=== PATIENT | female | born 1985 | race Caucasian/White ===

== ENCOUNTER 2018-09-25 00:32 | Emergency (ER) | payer OTHER, SELFPAY ==
--- NOTE | 2018-09-25 02:03 | EDPHYS ---
Physician Documentation [facility] Name: Lesli Fay Age: 33 yrs Sex: Female : 1985 Arrival Date: 09/25/2018 Time: 00:39 Bed 23 Private MD: ED Physician Angelo Barraza HPI: 09/25 05:12 This 33 yrs old Female presents to ER via Ambulatory with complaints of wa pinworms. 05:13 This 33 yrs old Female presents to ER via Ambulatory with complaints of wa pinworms. 05:13 c/o pinworms. states has noted them in her underwear and also it itches in her anal wa area. Onset: The symptoms/episode began/occurred 1 week(s) ago. Severity of symptoms: At their worst the symptoms were moderate in the emergency department the symptoms are unchanged. The patient has not experienced similar symptoms in the past. The patient has not recently seen a physician. denies abd pain, fever or any other concerns. Historical: - Allergies: 00:44 No Known Allergies; la1 - PMHx: 00:44 neuromyelitis optica; Fibromyalgia; IBS; Asthma; High Cholesterol; Migraines; la1 - Immunization history:: Adult Immunizations up to date. - Social history:: Smoking status: Patient uses tobacco products, smokes one-half pack cigarettes per day. - Ebola Screening: : No symptoms or risks identified at this time. - Family history:: not pertinent. - Hospitalizations: : No recent hospitalization is reported. ROS: 05:15 Constitutional: Negative for fever, chills, and weight loss, Eyes: Negative for injury, wa pain, redness, and discharge, ENT: Negative for injury, pain, and discharge, Neck: Negative for injury, pain, and swelling, Cardiovascular: Negative for chest pain, palpitations, and edema, Respiratory: Negative for shortness of breath, cough, wheezing, and pleuritic chest pain, Back: Negative for injury and pain, : Negative for injury, bleeding, discharge, and swelling, MS/Extremity: Negative for injury and deformity, Skin: Negative for injury, rash, and discoloration, Neuro: Negative for headache, weakness, numbness, tingling, and seizure. 05:15 Abdomen/GI: Positive for anal itching and pinworms. 05:15 All other systems are negative. Exam: 05:15 Constitutional: This is a well developed, well nourished patient who is awake, alert, wa and in no acute distress. Head/Face: Normocephalic, atraumatic. Eyes: Pupils equal round and reactive to light, extra-ocular motions intact. Lids and lashes normal. Conjunctiva and sclera are non-icteric and not injected. Cornea within normal limits. Periorbital areas with no swelling, redness, or edema. ENT: Nares patent. No nasal discharge, no septal abnormalities noted. Tympanic membranes are normal and external auditory canals are clear. Oropharynx with no redness, swelling, or masses, exudates, or evidence of obstruction, uvula midline. Mucous membranes moist. Neck: Trachea midline, no thyromegaly or masses palpated, and no cervical lymphadenopathy. Supple, full range of motion without nuchal rigidity, or vertebral point tenderness. No Meningismus. Chest/axilla: Normal chest wall appearance and motion. Nontender with no deformity. No lesions are appreciated. Cardiovascular: Regular rate and rhythm with a normal S1 and S2. No gallops, murmurs, or rubs. Normal PMI, no JVD. No pulse deficits. Respiratory: Lungs have equal breath sounds bilaterally, clear to auscultation and percussion. No rales, rhonchi or wheezes noted. No increased work of breathing, no retractions or nasal flaring. Back: No spinal tenderness. No costovertebral tenderness. Full range of motion. MS/ Extremity: Pulses equal, no cyanosis. Neurovascular intact. Full, normal range of motion. Neuro: Awake and alert, GCS 15, oriented to person, place, time, and situation. Cranial nerves II-XII grossly intact. Motor strength 5/5 in all extremities. Sensory grossly intact. Cerebellar exam normal. Normal gait. Psych: Awake, alert, with orientation to person, place and time. Behavior, mood, and affect are within normal limits. 05:15 Abdomen/GI: Rectal exam: no pinworms noted on visual exam of perirectal/anal area. Vital Signs: 00:44 BP 109 / 77; Pulse 112; Resp 18; Temp 98.4; Pulse Ox 98% on R/A; Weight 30.39 kg; la1 Height 5 ft. 1 in. (154.94 cm); 00:44 Body Mass Index 12.66 (30.39 kg, 154.94 cm) la1 MDM: 01:54 Patient medically screened. wa 05:16 Differential Diagnosis c/o pinworms. will treat empirically. clinical exam by me jean-baptiste negative at this time. Data reviewed: vital signs, nurses notes. Administered Medications: No medications were administered Disposition: 09/25/18 02:03 Discharged to Home. Impression: Pinworms. - Condition is Stable. - Discharge Instructions: Pinworms, Pediatric. - Prescriptions for mebendazole - take 100 milligram by ORAL route one time repeat x1 in 2 weeks; 2 milligram. - Medication Reconciliation Form, Thank You Letter, Antibiotic Education, Prescription Opioid Use form. - Work release form (09/25/18 02:19). ak1 - Follow up: Private Physician; When: 2 - 3 days; Reason: Recheck today's complaints. - Problem is new. - Symptoms are unchanged. - Notes: take one tablet now. repeat x1 in 2 weeks Signatures: Kareem Pepe RN RN la1 Clover Goodwin RN RN ak1 Angelo Barraza MD MD wa Corrections: (The following items were deleted from the chart) 02:17 02:03 09/25/2018 02:03 Discharged to Home. Impression: Pinworms. Condition is Stable. ak1 Forms are Medication Reconciliation Form, Thank You Letter, Antibiotic Education, Prescription Opioid Use. Follow up: Private Physician; When: 2 - 3 days; Reason: Recheck today's complaints. Problem is new. Symptoms are unchanged. wa
--- NOTE | 2018-09-25 02:03 | ER ---
Nurse's Notes [facility] Name: Lesli Fay Age: 33 yrs Sex: Female : 1985 Arrival Date: 09/25/2018 Time: 00:39 Bed 23 Private MD: Diagnosis: Pinworms Presentation: 09/25 00:42 Presenting complaint: Patient states: I think I have pinworms, I keep finding things in la1 my bed/clothes. I have been having a lot of constipation, nausea. Some of these problems have been going on for years. Transition of care: patient was not received from another setting of care. Onset of symptoms was September 25, 2018. Risk Assessment: Do you want to hurt yourself or someone else? Patient reports no desire to harm self or others. Initial Sepsis Screen: Does the patient meet any 2 criteria? No. Patient's initial sepsis screen is negative. Does the patient have a suspected source of infection? No. Patient's initial sepsis screen is negative. Care prior to arrival: None. 00:42 Method Of Arrival: Ambulatory la1 00:42 Acuity: TAZ 3 la1 Historical: - Allergies: 00:44 No Known Allergies; la1 - PMHx: 00:44 neuromyelitis optica; Fibromyalgia; IBS; Asthma; High Cholesterol; Migraines; la1 - Immunization history:: Adult Immunizations up to date. - Social history:: Smoking status: Patient uses tobacco products, smokes one-half pack cigarettes per day. - Ebola Screening: : No symptoms or risks identified at this time. - Family history:: not pertinent. - Hospitalizations: : No recent hospitalization is reported. Screenin:50 Abuse screen: Denies threats or abuse. Nutritional screening: No deficits noted. fc Tuberculosis screening: No symptoms or risk factors identified. Fall Risk None identified. Assessment: 01:50 General: Appears in no apparent distress. comfortable, slender, Behavior is calm, fc cooperative, appropriate for age. Pain: Denies pain. Neuro: Level of Consciousness is awake, alert, obeys commands, Oriented to person, place, time, situation, Appropriate for age. Cardiovascular: No deficits noted. Respiratory: No deficits noted. GI: Reports having pinworms. : No deficits noted. EENT: No deficits noted. Derm: Skin is pink, warm \T\ dry. Musculoskeletal: Circulation, motion, and sensation intact. Capillary refill < 3 seconds, Range of motion: intact in all extremities. 01:55 Reassessment: Went in with Dr Barraza to see pt and he did his exam. He then spoke with fc pt re: meds and treatment of pinworms. Pt verbalized understanding. Vital Signs: 00:44 BP 109 / 77; Pulse 112; Resp 18; Temp 98.4; Pulse Ox 98% on R/A; Weight 30.39 kg; la1 Height 5 ft. 1 in. (154.94 cm); 00:44 Body Mass Index 12.66 (30.39 kg, 154.94 cm) la1 ED Course: 00:39 Patient arrived in ED. am2 00:43 Triage completed. la1 00:44 Arm band placed on left wrist. la1 01:50 Patient has correct armband on for positive identification. Bed in low position. Call fc light in reach. Side rails up X 1. 01:54 Angelo Barraza MD is Attending Physician. mi 01:55 Clover Goodwin, RN is Primary Nurse. ak1 01:55 Served as a car changer during rectal exam. 02:08 Patient did not have IV access during this emergency room visit. Administered Medications: No medications were administered Outcome: 02:03 Discharge ordered by . mi 02:09 Discharged to home ambulatory. 02:09 Condition: good 02:09 Discharge instructions given to patient, Instructed on discharge instructions, follow up and referral plans. medication usage, Demonstrated understanding of instructions, follow-up care, medications, Prescriptions given X 1. 02:17 Patient left the ED. ak1 Signatures: Dipika Pineda RN SAMSON Kareem Pepe RN RN Clover Herbert, RN RN Nancy Dockery 2 Angelo Barraza MD MD wa
[2018-09-25 02:54] VITALS: BP 109/77; TEMP 98.4; O2SAT 98
== END 2018-09-25 02:17 | disposition home or self-care (01) ==
LOC: ER 00:32
DX: B80 Enterobiasis (principal); J45.909 Unspecified asthma, uncomplicated; E78.00 Pure hypercholesterolemia, unspecified; F17.210 Nicotine dependence, cigarettes, uncomplicated
CPT/HCPCS: 99283

== ENCOUNTER 2019-03-12 12:47 | Emergency (ER) | payer SELFPAY ==
--- OUTSIDE RECORDS SUMMARY | 2019-03-12 12:49 | XMS REPORT | Summary of Care ---
:1985 Author Organization [facility] Address [address] [place] [address] Care Team Providers Name Role Phone Pcp, Patient Does Not Have A Primary Care Provider Reason for Referral Other (Routine) Status Reason Specialty Diagnoses / Referred By Referred To Procedures Contact Contact New Request Diagnoses Acute pharyngitis, unspecified etiology Underweight Gia Coulter King, James C Procedures Discharge Follow-up: Specialty Provider DANA BERRIOS III; 3-5 Days MD LELSEE MD [address] [place] [address] [id number] [address] [place] [address] Phone: Radiology Services (STAT) Status Reason Specialty Diagnoses / Referred By Referred To Procedures Contact Contact New Request Diagnostic Diagnoses Fever in other diseases Gia Coulter Radiology Procedures XR CHEST 1 LAURA Beltre MD [address] [place] [address] Radiology Services (STAT) Status Reason Specialty Diagnoses / Referred By Referred To Procedures Contact Contact New Request Diagnostic Diagnoses Fever in other diseases Gia Coulter Radiology Procedures XR CHEST 1 LAURA Beltre MD [address] [place] [address] Reason for Visit Reason Comments Cough Auth/Cert Status Reason Specialty Diagnoses / Referred By Referred To Procedures Contact Contact [facility] [address] [place] [address] [place] [address] Encounter Details Date Type Department Care Team Description 10/30/2018 - Emergency [facility] Gia Coulter, Fever in other diseases (Primary Dx); 10/31/2018 Department MD Acute pharyngitis, unspecified etiology; [address] [place] [address] [place] [address] [id number] [place] [address] [phone] Allergies No Known Allergiesdocumented as of this encounter (statuses as of 10/31/2018) Medications Medication Sig Dispensed Refills Start Date End Date Status #2 ORAL 1 po daily 0 Active DOCUSATE CALCIUM Take one capsule by 60 capsules 1 10/30/2008 Active 240 MG ORAL CAP mouth daily as needed for constipation FERROUS SULFATE 1 Tab Oral TID MEALS 90 1 10/30/2008 Active 325 MG (65 MG IRON) ORAL TAB documented as of this encounter (statuses as of 10/31/2018) Active Problems Problem Noted Date Normal delivery 10/29/2008 anemia 10/29/2008 Overview: ICD10 Diagnosis Term Patient Care Coordinator Utility Bipolar disorder 10/29/2008 Disruption of perineal wound, with delivery, with mention of 2008 complication documented as of this encounter (statuses as of 10/31/2018) Social History Tobacco Use Types Packs/Day Years Used Date Never Assessed Sex Assigned at Date Recorded Not on file Job Start Date Occupation Industry Not on file Not on file Not on file Travel History Travel Start Travel End No recent travel history available. documented as of this encounter Last Filed Vital Signs Vital Sign Reading Time Taken Comments Blood Pressure 85/58 10/31/2018 2:00 AM CDT Pulse 78 10/31/2018 2:00 AM CDT Temperature 37.7 C (99.8 F) 10/30/2018 11:39 PM CDT Respiratory Rate 27 10/31/2018 2:00 AM CDT Oxygen Saturation 99% 10/31/2018 2:00 AM CDT Inhaled Oxygen Concentration - - Weight 29.5 kg (65 lb) 10/30/2018 11:39 PM CDT Height - - Body Mass Index - - documented in this encounter Discharge Instructions Gia Balderrama MD - 10/31/2018 DIAGNOSIS Diagnoses that have been ruled out: None Diagnoses that are still under consideration: None Final diagnoses: Fever in other diseases Acute pharyngitis, unspecified etiology Underweight NO LIFE-THREATENING FINDINGS ON TODAY'S EXAM. PROCEDURES IN THE ER TODAY: Orders Placed This Encounter Procedures XR CHEST 1 VW CBC WITH DIFF COMP. METABOLIC PANEL (35782) LIPASE URINALYSIS RAPID STREP SCREEN FOR GROUP A EBV-MONONUCLEOSIS SCREEN MAGNESIUM CBC WITH DIFFERENTIAL THROAT CULTURE MEDICATIONS ADMINISTERED IN THE ER TODAY AND DISCHARGE MEDICATIONS: Orders Placed This Encounter Medications NaCl 0.9% (NS) bolus infusion 500 mL FOLLOW-UP RECOMMENDATIONS: RECOMMEND FOLLOW-UP WITH YOUR PRIMARY CARE PROVIDER OR DR KING CAMILO DISCUSSED TO FURTHER EVALUATE YOU RETURN TO ER FOR WORSENING OF SYMPTOMS documented in this encounter Plan of Treatment Name Type Priority Associated Diagnoses Date/Time XR CHEST 1 VW IMAGING STAT Fever in other diseases 10/31/2018 12:32 AM CDT THROAT CULTURE LAB STAT Fever in other diseases 10/31/2018 12:21 AM CDT Name Type Priority Associated Diagnoses Order Schedule THROAT CULTURE LAB Routine Fever in other diseases ONCE for 1 Occurrences starting 10/31/2018 until 10/31/2018 Health Maintenance Due Date Last Done Comments VARICELLA VACCINES (1 of 2 - 1996 13+ 2-dose series) DTaP,Tdap,and Td Vaccines (1 2002 - Tdap) PAP SMEAR 12/13/2011 12/12/2008, 08/27/2008 INFLUENZA VACCINE 11/19/2018 PNEUMOCOCCAL 0-64 YEARS Aged Out No longer eligible based COMBINED SERIES on patient's age to complete this topic documented as of this encounter Procedures Procedure Name Priority Date/Time Associated Comments Diagnosis CBC WITH DIFFERENTIAL STAT 10/31/2018 12:21 Fever in other Results for this AM CDT diseases procedure are in the results section. RAPID STREP SCREEN STAT 10/31/2018 12:21 Fever in other Results for this FOR GROUP A AM CDT diseases procedure are in the results section. EBV-MONONUCLEOSIS STAT 10/31/2018 12:21 Fever in other Results for this SCREEN AM CDT diseases procedure are in the results section. URINALYSIS STAT 10/31/2018 12:21 Fever in other Results for this AM CDT diseases procedure are in the results section. CBC WITH DIFF STAT 10/31/2018 12:21 Fever in other Results for this AM CDT diseases procedure are in the results section. COMP. METABOLIC PANEL STAT 10/31/2018 12:21 Fever in other Results for this (70399) AM CDT diseases procedure are in the results section. MAGNESIUM STAT 10/31/2018 12:21 Fever in other Results for this AM CDT diseases procedure are in the results section. LIPASE STAT 10/31/2018 12:21 Fever in other Results for this AM CDT diseases procedure are in the results section. NOTICE OF PRIVACY Routine 10/30/2018 11:36 PRACTICES PM CDT CONSENT/REFUSAL FOR Routine 10/30/2018 11:35 DIAGNOSIS AND PM CDT TREATMENT documented in this encounter Results CBC WITH DIFFERENTIAL (10/31/2018 12:21 AM CDT) WBC 9.39 4.30 - 11.10 [facility] 10*3/L [facility] RBC 4.24 3.93 - 5.25 [facility] 10*6/L [facility] HGB 13.1 11.6 - 15.0 [facility] g/dL [facility] HCT 39.8 35.7 - 45.2 % [facility] MCV 93.9 80.6 - 95.5 fL [facility] MCH 30.9 25.9 - 32.8 pg [facility] MCHC 32.9 31.6 - 35.1 [facility] g/dL [facility] RDW-SD 43.9 39.0 - 49.9 fL [facility] RDW-CV 12.7 12.0 - 15.5 % [facility] PLT 239 166 - 358 [facility] 10*3/L [facility] MPV 8.7 (L) 9.5 - 12.9 fL [facility] NRBC/100 WBC 0.0 0.0 - 10.0 /100 [facility] WBCs [facility] NRBC x10^3 <0.01 10*3/L [facility] GRAN MAT (NEUT) % 73.1 % [facility] IMM GRAN % 0.30 % [facility] LYMPH % 11.0 % [facility] MONO % 13.5 % [facility] EOS % 1.7 % [facility] BASO % 0.4 % [facility] GRAN MAT x10^3(ANC) 6.86 1.88 - 7.09 [facility] 10*3/uL [facility] IMM GRAN x10^3 0.03 0.00 - 0.06 [facility] 10*3/uL [facility] LYMPH x10^3 1.03 (L) 1.32 - 3.29 [facility] 10*3/uL [facility] MONO x10^3 1.27 (H) 0.33 - 0.92 [facility] 10*3/uL [facility] EOS x10^3 0.16 0.03 - 0.39 [facility] 103/uL [facility] BASO x10^3 0.04 0.01 - 0.[address]/uL [facility] Specimen Blood - ARM, RIGHT Performing Organization Address [facility] Phone Number [facility] CLIA: [id number], [address] [place] [address] MAGNESIUM (10/31/2018 12:21 AM CDT) MAGNESIUM 2.1 1.7 - 2.4 mg/dL [facility] Specimen Blood - ARM, RIGHT Performing Organization Address [facility] Phone Number [facility] CLIA: [id number], [address] [place] [address] EBV-MONONUCLEOSIS SCREEN (10/31/2018 12:21 AM CDT) EBV Mononucleosis Screen Negative Negative [facility] Specimen Blood - ARM, RIGHT Performing Organization Address [facility] Phone Number [facility] CLIA: [id number], [address] [place] [address] RAPID STREP SCREEN FOR GROUP A (10/31/2018 12:21 AM CDT) Streptococcus pyogenes Negative Negative [facility] (group A) antigen [facility] Specimen Swab - THROAT Performing Organization Address [facility] Phone Number [facility] CLIA: [id number], [address] [place] [address] URINALYSIS (10/31/2018 12:21 AM CDT) APPEARANCE Slightly Cloudy (A) Clear [facility] COLOR Yellow Yellow [facility] PH 6.0 4.8 - 8.0 [facility] SP GRAVITY 1.025 1.003 - 1.030 [facility] GLU U QUAL Negative Negative [facility] BLOOD Negative Negative [facility] KETONES Trace (A) Negative [facility] PROTEIN Trace (A) Negative [facility] UROBILIN 1.0 mg/dL 0-1.0 mg/dL [facility] BILIRUBIN Small (A) Negative [facility] NITRITE Negative Negative [facility] LEUK NAYELI Negative Negative [facility] RBC/HPF 0 0 - 3 HPF [facility] WBC/HPF 3 0 - 5 HPF [facility] BACTERIA Few (A) Negative [facility] MUCOUS Moderate (A) Negative LPF [facility] SQ EPITH 2 HPF [facility] Specimen Urine - URINE, CLEAN CATCH Performing Organization Address [facility] Phone Number [facility] CLIA: [id number], [address] [place] [id number] [address] LIPASE (10/31/2018 12:21 AM CDT) Pathologist [facility] LIPASE 72 0 - 220 U/L [facility] Specimen Blood - ARM, RIGHT Performing Organization Address [facility] Phone Number [facility] CLIA: [id number], [address] [place] [place] [id number] LABORATORY Hospital [facility] COMP. METABOLIC PANEL ([id number]) (10/31/2018 12:21 AM CDT) Pathologist [facility] NA 144 135 - 145 [facility] mmol/L [facility] K 3.6 3.5 - 5.0 [facility] mmol/L [facility] CL 105 98 - 108 mmol/L [facility] CO2 TOTAL 29 23 - 31 mmol/L [facility] AGAP 10 2 - 16 [facility] BUN 21 7 - 23 mg/dL [facility] GLUCOSE 76 70 - 110 mg/dL [facility] CREATININE 0.48 (L) 0.50 - 1.04 [facility] mg/dL [facility] TOTAL BILI 0.9 0.1 - 1.1 mg/dL [facility] CALCIUM 9.2 8.6 - 10.6 [facility] mg/dL [facility] T PROTEIN 7.4 6.3 - 8.2 g/dL [facility] ALBUMIN 4.4 3.5 - 5.0 g/dL [facility] ALK PHOS 58 34 - 122 U/L [facility] ALT(SGPT) 31 9 - 51 U/L [facility] AST(SGOT) 30 13 - 40 U/L [facility] eGFR Calculation 147.2 mL/min/1.73m2 [facility] (Non[facility] LAB[facility]ATORY [place]) eGFR Calculation 178.4 mL/min/1.73m2 [facility] () [facility] Specimen Blood - ARM, RIGHT Narrative Performed At Association of Glomerular Filtration Rate (GFR) [facility] and Staging of Kidney Disease* + + +- + | GFR (mL/min/1.73 m2)| With Kidney Damage|Without Kidney Damage + + +- + |>90| Stage one| Normal + + +- + |60-89|S tage two| Decreased GFR + + +- + |30-59|S tage three| Stage three + + +- + |15-29|S tage four | Stage four + + +- + |<15 (or dialysis)|Stage five | Stage five + + +- + *Each stage assumes the associated GFR level has been in effect for at least three months.Stages 1 to 5, with or without kidney disease, indicate chronic kidney disease. Notes: Determination of stages one and two (with eGFR >59mL/min/1.73 m2) requires estimation of kidney damage for at least three months as defined by structural or functional abnormalities of the kidney, manifested by either: Pathological abnormalities or Markers of kidney damage (including abnormalities in the composition of the blood or urine or abnormalities in imaging tests). Performing Organization Address City/State/Zipcode Phone Number [facility] CLIA: [id number], [address] [place] [address] documented in this encounter Visit Diagnoses Diagnosis Fever in other diseases - Primary Acute pharyngitis, unspecified etiology Underweight documented in this encounter Administered Medications Medication Order MAR Action Action Date Dose Rate Site NaCl 0.9% (NS) bolus New Bag 10/31/2018 12:23 AM CDT 500 mL 999 mL/hr infusion 500 mL at 999 mL/hr, 500 mL, IV Infusion, ONCE, 1 dose, Tu 10/31/18 at 0115, STAT documented in this encounter"
--- OUTSIDE RECORDS SUMMARY | 2019-03-12 12:49 | XMS REPORT ---
:1985 [facility] Address [address] [place] [address] Dr. Armenta [address] [place] [id number] Care Team Providers Name Role Phone Unavailable Unavailable Unavailable Problems This patient has no known problems. Allergies, Adverse Reactions, Alerts This patient has no known allergies or adverse reactions. Medications This patient has no known medications.
[2019-03-12] MEDS ORDERED: IBUPROFEN 400 MG TAB ONE (13:45)
--- NOTE | 2019-03-12 13:51 | EDPHYS ---
Physician Documentation [facility] Name: Lesli Fay Age: 33 yrs Sex: Female : 1985 Arrival Date: 03/12/2019 Time: 12:50 Bed 18 Private MD: ED Physician Hung Rehman HPI: 03/12 13:12 This 33 yrs old Female presents to ER via Ambulatory with complaints of Sore jmm Throat. 13:12 The patient presents with sore throat. Onset: The symptoms/episode began/occurred jmm gradually, 1 week(s) ago. Modifying factors: The symptoms are alleviated by nothing, the symptoms are aggravated by nothing. Associated signs and symptoms: The patient has no apparent associated signs or symptoms, Pertinent positives: cough. Patient complains of cough, sore throat, for 1 week. Denies fever but complains of chills/body aches. . Historical: - Allergies: 13:00 No Known Allergies; ss - PMHx: 13:00 Asthma; Fibromyalgia; High Cholesterol; ibs; Migraines; neuromyelitis optica; ss - PSHx: 13:00 Hysterectomy; ss - Immunization history:: Adult Immunizations up to date. - Social history:: Smoking status: Patient uses tobacco products, smokes one-half pack cigarettes per day. - Ebola Screening: : Patient denies exposure to infectious person Patient denies travel to an Ebola-affected area in the 21 days before illness onset. ROS: 13:12 Constitutional: Positive for body aches, chills. jmm 13:12 ENT: Positive for sore throat. 13:12 Neck: Positive for swollen nodes. 13:12 Respiratory: Positive for cough. 13:12 All other systems are negative. Exam: 13:12 Constitutional: This is a well developed, well nourished patient who is awake, alert, jmm and in no acute distress. Head/Face: atraumatic. Eyes: EOMI, no conjunctival erythema appreciated 13:12 Neck: Trachea midline, Supple Chest/axilla: Normal chest wall appearance and motion. 13:12 Back: Normal ROM Skin: General appearance color normal MS/ Extremity: Moves all extremities, no obvious deformities appreciated, no edema noted to the lower extremities Neuro: Awake and alert, normal gait Psych: Behavior is normal, Mood is normal, Patient is cooperative and pleasant 13:12 ENT: Posterior pharynx: erythema, that is mild. 13:12 Cardiovascular: Rate: normal, Rhythm: regular, Pulses: no pulse deficits are appreciated. 13:12 Respiratory: the patient does not display signs of respiratory distress, Respirations: normal, Breath sounds: are clear throughout. 13:12 Abdomen/GI: Inspection: abdomen appears normal, Bowel sounds: normal, Palpation: abdomen is soft and non-tender. Vital Signs: 12:56 BP 107 / 66; Pulse 81; Resp 16; Temp 98.0(O); Pulse Ox 100% on R/A; Weight 36.29 kg; ss Height 5 ft. 1 in. (154.94 cm); Pain 6/10; 12:56 Body Mass Index 15.12 (36.29 kg, 154.94 cm) ss MDM: 12:59 Patient medically screened. [facility] 13:47 Data reviewed: vital signs, nurses notes. Counseling: I had a detailed discussion with [facility] the patient and/or guardian regarding: the historical points, exam findings, and any diagnostic results supporting the discharge/admit diagnosis, lab results, the need for outpatient follow up, to return to the emergency department if symptoms worsen or persist or if there are any questions or concerns that arise at home. ED course: Patient is alert and non toxic in appearance in the ED. Patient is advised to follow up with pcp and otherwise given strict return precautions. Patient understood and agrees with the plan of care. . 03/12 13:08 Order name: Strep; Complete Time: 13:30 [facility] 03/12 13:08 Order name: Flu; Complete Time: 13:47 [facility] 03/12 13:31 Order name: Throat Culture EDMS Administered Medications: 13:45 Drug: Motrin 400 mg Route: PO; em 14:15 Follow up: Response: No adverse reaction; Pain is unchanged, physician notified em 14:24 Drug: [place] 5 mg-325 mg 1 tabs Route: PO; em 14:27 Follow up: Response: Medication administered at discharge. em Disposition: 16:43 Co-signature as Attending Physician, Hung Rehman MD I agree with the assessment and kdr plan of care. Disposition: 03/12/19 13:50 Discharged to Home. Impression: Acute pharyngitis. - Condition is Stable. - Discharge Instructions: Pharyngitis. - Prescriptions for Amoxicillin 875 mg Oral Tablet - take 1 tablet by ORAL route every 12 hours for 10 days; 20 tablet. - Medication Reconciliation Form, Thank You Letter, Antibiotic Education, Prescription Opioid Use form. - Follow up: Private Physician; When: 2 - 3 days; Reason: Recheck today's complaints, Continuance of care, Re-evaluation by your physician. Signatures: Dispatcher [employer] EDMS Hung Rehman MD MD kdr Mickail, Joel, PA PA Benito [place], FOOD PRODUCTION ASSOCIATE FOOD PRODUCTION ASSOCIATE em Lauren Obregon, RN RN ss Corrections: (The following items were deleted from the chart) 14:17 13:50 03/12/2019 13:50 Discharged to Home. Impression: Acute pharyngitis. Condition is em Stable. Forms are Medication Reconciliation Form, Thank You Letter, Antibiotic Education, Prescription Opioid Use. Follow up: Private Physician; When: 2 - 3 days; Reason: Recheck today's complaints, Continuance of care, Re-evaluation by your physician. [facility] 14:28 14:17 03/12/2019 13:50 Discharged to Home. Impression: Acute pharyngitis. Condition is em Stable. Discharge Instructions: Pharyngitis. Prescriptions for Amoxicillin 875 mg Oral Tablet - take 1 tablet by ORAL route every 12 hours for 10 days; 20 tablet. and Forms are Medication Reconciliation Form, Thank You Letter, Antibiotic Education, Prescription Opioid Use. Follow up: Private Physician; When: 2 - 3 days; Reason: Recheck today's complaints, Continuance of care, Re-evaluation by your physician. em
--- NOTE | 2019-03-12 13:51 | ER ---
Nurse's Notes [facility] Name: Lesli Fay Age: 33 yrs Sex: Female : 1985 Arrival Date: 03/12/2019 Time: 12:50 Bed 18 Private MD: Diagnosis: Acute pharyngitis Presentation: 03/12 12:57 Presenting complaint: Patient states: sore throat x 1-2 weeks. Became worse yesterday. ss Transition of care: patient was not received from another setting of care. Onset of symptoms was February 26, 2019. Risk Assessment: Do you want to hurt yourself or someone else? Patient reports no desire to harm self or others. Initial Sepsis Screen: Does the patient meet any 2 criteria? No. Patient's initial sepsis screen is negative. Does the patient have a suspected source of infection? No. Patient's initial sepsis screen is negative. Care prior to arrival: None. 12:57 Acuity: TAZ 4 ss 12:57 Method Of Arrival: Ambulatory ss Historical: - Allergies: 13:00 No Known Allergies; ss - PMHx: 13:00 Asthma; Fibromyalgia; High Cholesterol; ibs; Migraines; neuromyelitis optica; ss - PSHx: 13:00 Hysterectomy; ss - Immunization history:: Adult Immunizations up to date. - Social history:: Smoking status: Patient uses tobacco products, smokes one-half pack cigarettes per day. - Ebola Screening: : Patient denies exposure to infectious person Patient denies travel to an Ebola-affected area in the 21 days before illness onset. Screenin:17 Abuse screen: Denies threats or abuse. Nutritional screening: No deficits noted. em Tuberculosis screening: No symptoms or risk factors identified. Fall Risk None identified. Assessment: 13:19 General: Appears in no apparent distress. comfortable, Behavior is calm, cooperative, em Denies fever. Pain: Complains of pain in throat. Neuro: Level of Consciousness is awake, alert, obeys commands, Oriented to person, place, time, situation, Appropriate for age. Cardiovascular: Capillary refill < 3 seconds Patient's skin is warm and dry. Respiratory: Airway is patent Respiratory effort is even, unlabored, Respiratory pattern is regular, symmetrical, Breath sounds are clear bilaterally. EENT: Nares are clear Oral mucosa is moist. Throat is reddened has enlarged tonsils bilaterally. Derm: Skin is intact, is healthy with good turgor, Skin is pink, warm \T\ dry. Musculoskeletal: Capillary refill < 3 seconds, Range of motion: intact in all extremities. 13:21 General: The previous assessment is accurate. Call light remains within reach.. ss 14:15 Reassessment: request something stronger for pain, no relief from motrin, provider em notified. Vital Signs: 12:56 BP 107 / 66; Pulse 81; Resp 16; Temp 98.0(O); Pulse Ox 100% on R/A; Weight 36.29 kg; ss Height 5 ft. 1 in. (154.94 cm); Pain 6/10; 12:56 Body Mass Index 15.12 (36.29 kg, 154.94 cm) ED Course: 12:50 Patient arrived in ED. ag5 12:52 Bruce Burt PA is PHCP. marizol 12:52 Hung Rehman MD is Attending Physician. [facility] 12:56 Arm band placed on right wrist. 12:59 Triage completed. 13:09 Benito Shipley LVN is Primary Nurse. em 13:17 Patient has correct armband on for positive identification. Bed in low position. Call em light in reach. Pulse ox on. NIBP on. 13:20 Flu Sent. 5 13:20 Strep Sent. 5 13:21 Flu and/or RSV swab sent to lab. Strep swab sent to lab. 5 14:15 No provider procedures requiring assistance completed. Patient did not have IV access em during this emergency room visit. Administered Medications: 13:45 Drug: Motrin 400 mg Route: PO; em 14:15 Follow up: Response: No adverse reaction; Pain is unchanged, physician notified em 14:24 Drug: [place] 5 mg-325 mg 1 tabs Route: PO; em 14:27 Follow up: Response: Medication administered at discharge. em Outcome: 13:50 Discharge ordered by . [facility] 14:15 Discharged to home ambulatory. em 14:15 Condition: good 14:15 Discharge instructions given to patient, Instructed on discharge instructions, follow up and referral plans. medication usage, Demonstrated understanding of instructions, follow-up care, medications, Prescriptions given X 1. 14:17 Patient left the ED. em 14:28 Patient left the ED. em Signatures: Bruce Burt PA PA jmm Munoz, Edgar, PHARM TECH PHARM TECH Lauren Land, SAMSON RN Zuleyka Ortega [facility] Nikkie Rodriguez 5
[2019-03-12 14:27] VITALS: BP 107/66; TEMP 98; O2SAT 100
[2019-03-12] MEDS ORDERED: HYDROCODONE/APAP 5/325 MG TAB ONE (14:27)
== END 2019-03-12 14:28 | disposition home or self-care (01) ==
LOC: ER 12:47
DX: J02.9 Acute pharyngitis, unspecified (principal); F17.210 Nicotine dependence, cigarettes, uncomplicated
CPT/HCPCS: 87070; 87081; 87804; 99284

== ENCOUNTER 2022-05-11 08:40 | Emergency (ER) | payer OTHER ==
[2022-05-11] MEDS ORDERED: AZITHROMYCIN 250 MG TAB ONE (09:10)
[2022-05-11] MEDS ORDERED: IPRATROPIUM BROM 0.5MG/2.5ML ONE (09:10)
[2022-05-11] MEDS ORDERED: ALBUTEROL 2.5 MG/3 ML NEB SOL ONE (09:10)
[2022-05-11] MEDS ORDERED: predniSONE 20 MG TAB ONE (09:10)
[2022-05-11 09:54] LABS: SARS-COV-2 RT PCR NEGATIVE (NEGATIVE)
--- NOTE | 2022-05-11 10:08 | ER ---
Nurse's Notes [facility] Name: Lesli Skelton Age: 37 yrs Sex: Female : 1985 Arrival Date: 05/11/2022 Time: 08:44 Bed 18 Private MD: Diagnosis: Mild persistent asthma;Acute upper respiratory infection, unspecified;Tobacco abuse counseling;Tobacco use Presentation: 05/11 08:47 Chief complaint: Patient states: cough, congestion, sore throat, body aches x 2 days. aa5 Pt states "I've been having some trouble breathing and I had to use my inhaler and I normally don't". 08:47 Coronavirus screen: congestion, cough unrelated to allergies. Ebola Screen: Patient aaElizabeth denies travel to an Ebola-affected area in the 21 days before illness onset. Initial Sepsis Screen: Does the patient meet any 2 criteria? No. Patient's initial sepsis screen is negative. Does the patient have a suspected source of infection? No. Patient's initial sepsis screen is negative. Risk Assessment: Do you want to hurt yourself or someone else? Patient reports no desire to harm self or others. Onset of symptoms was April 2022. 08:47 Acuity: TAZ 3 aa5 08:47 Method Of Arrival: Ambulatory aa5 Triage Assessment: 10:20 General: Appears in no apparent distress. Behavior is calm, cooperative. Pain: Denies ap3 pain. Respiratory: Reports shortness of breath cough that is Airway is patent Respiratory effort is even, unlabored, Respiratory pattern is regular, symmetrical. 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 - Social history:: Smoking status: Patient reports the use of cigarette tobacco products, smokes one-half pack cigarettes per day. Screenin:20 [facility] ED Fall Risk Assessment (Adult) History of falling in the last 3 months, ap3 including since admission No falls in past 3 months (0 pts). Abuse screen: Denies threats or abuse. Nutritional screening: No deficits noted. Tuberculosis screening: No symptoms or risk factors identified. Vital Signs: 08:47 BP 112 / 73; Pulse 61; Resp 16 S; Temp 98.4(O); Pulse Ox 97% on R/A; Weight 53.52 kg aa5 (R); Height 5 ft. 2 in. (157.48 cm) (R); 09:42 BP 111 / 75; Pulse 65; Pulse Ox 98% on R/A; ap3 08:47 Body Mass Index 21.58 (53.52 kg, 157.48 cm) aa5 ED Course: 08:44 Patient arrived in ED. aa5 08:45 Tim Clemente MD is Attending Physician. alphonse 08:50 Nancy Mondragon, SAMSON is Primary Nurse. ap3 08:53 Arm band placed on. aa5 08:54 Triage completed. aa5 09:13 COVID-19/FLU A+B Sent. ap3 10:08 Jaylon Stout MD is Referral Physician. alphonse 10:11 X-ray completed. 1 10:20 Patient has correct armband on for positive identification. Bed in low position. Call ap3 light in reach. Pulse ox on. NIBP on. Door closed. Noise minimized. 10:20 No provider procedures requiring assistance completed. Patient did not have IV access ap3 during this emergency room visit. Administered Medications: 09:13 Drug: predniSONE 60 mg Route: PO; ap3 09:41 Follow up: Response: No adverse reaction ap3 09:13 Drug: Albuterol - atroVENT (ipratropium) (3:1) (2.5 mg - 0.5 mg) 3 ml Route: Nebulizer; ap3 09:41 Follow up: Response: No adverse reaction ap3 09:13 Drug: Zithromax (azithromycin) 500 mg Route: PO; ap3 09:40 Follow up: Response: No adverse reaction ap3 Medication: 10:20 VIS not applicable for this client. ap3 Outcome: 10:08 Discharge ordered by . alphonse 10:20 Discharged to home ambulatory. ap3 10:20 Condition: good 10:20 Discharge instructions given to patient, Instructed on discharge instructions, follow up and referral plans. medication usage, Demonstrated understanding of instructions, follow-up care, medications, Prescriptions given X 4. 10:25 Patient left the ED. ap3 Signatures: Tim Clemente MD MD cha Harvey, Martha 1 Erica Romero, RN RN aa5 Nancy Mondragon RN RN ap3
--- NOTE | 2022-05-11 10:08 | EDPHYS ---
Physician Documentation [facility] Name: Lesli Skelton Age: 37 yrs Sex: Female : 1985 Arrival Date: 05/11/2022 Time: 08:44 Bed 18 Private MD: ED Physician Tim Clemente HPI: 05/11 09:28 This 37 yrs old Female presents to ER via Ambulatory with complaints of alphonse Cough, Congestion, Shortness Of Breath. 09:28 The patient or guardian reports cough, difficulty breathing, flu symptoms, low-grade alphonse fever, myalgias. Onset: The symptoms/episode began/occurred 2 day(s) ago. Severity of symptoms: At their worst the symptoms were mild, moderate, in the emergency department the symptoms are unchanged. Modifying factors: The symptoms are alleviated by nothing, the symptoms are aggravated by exertion, talking. Associated signs and symptoms: Pertinent positives: rhinorrhea, sore throat. The patient has experienced similar episodes in the past, several times. 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 - Social history:: Smoking status: Patient reports the use of cigarette tobacco products, smokes one-half pack cigarettes per day. ROS: 09:30 Constitutional: Negative for fever, chills, and weight loss, Eyes: Negative for injury, alphonse pain, redness, and discharge, ENT: Negative for injury, pain, and discharge, Neck: Negative for injury, pain, and swelling, Cardiovascular: Negative for chest pain, palpitations, and edema, Abdomen/GI: Negative for abdominal pain, nausea, vomiting, diarrhea, and constipation, Back: Negative for injury and pain, : Negative for injury, bleeding, discharge, and swelling, MS/Extremity: Negative for injury and deformity, Skin: Negative for injury, rash, and discoloration, Neuro: Negative for headache, weakness, numbness, tingling, and seizure, Psych: Negative for depression, anxiety, suicide ideation, homicidal ideation, and hallucinations, Allergy/Immunology: Negative for hives, rash, and allergies, Endocrine: Negative for neck swelling, polydipsia, polyuria, polyphagia, and marked weight changes, Hematologic/Lymphatic: Negative for swollen nodes, abnormal bleeding, and unusual bruising. 09:30 Respiratory: Positive for cough, shortness of breath, wheezing, expiratory. Exam: 09:30 Constitutional: This is a well developed, well nourished patient who is awake, alert, alphonse and in no acute distress. Head/Face: Normocephalic, atraumatic. Eyes: Pupils equal round and reactive to light, extra-ocular motions intact. Lids and lashes normal. Conjunctiva and sclera are non-icteric and not injected. Cornea within normal limits. Periorbital areas with no swelling, redness, or edema. ENT: Nares patent. No nasal discharge, no septal abnormalities noted. Tympanic membranes are normal and external auditory canals are clear. Oropharynx with no redness, swelling, or masses, exudates, or evidence of obstruction, uvula midline. Mucous membranes moist. Neck: Trachea midline, no thyromegaly or masses palpated, and no cervical lymphadenopathy. Supple, full range of motion without nuchal rigidity, or vertebral point tenderness. No Meningismus. Chest/axilla: Normal chest wall appearance and motion. Nontender with no deformity. No lesions are appreciated. Cardiovascular: Regular rate and rhythm with a normal S1 and S2. No gallops, murmurs, or rubs. Normal PMI, no JVD. No pulse deficits. Abdomen/GI: Soft, non-tender, with normal bowel sounds. No distension or tympany. No guarding or rebound. No evidence of tenderness throughout. Back: No spinal tenderness. No costovertebral tenderness. Full range of motion. Skin: Warm, dry with normal turgor. Normal color with no rashes, no lesions, and no evidence of cellulitis. MS/ Extremity: Pulses equal, no cyanosis. Neurovascular intact. Full, normal range of motion. Neuro: Awake and alert, GCS 15, oriented to person, place, time, and situation. Cranial nerves II-XII grossly intact. Motor strength 5/5 in all extremities. Sensory grossly intact. Cerebellar exam normal. Normal gait. Psych: Awake, alert, with orientation to person, place and time. Behavior, mood, and affect are within normal limits. 09:30 Neck: ROM/movement: is normal, no acute changes, limited range of motion, is not appreciated, Meningeal signs: are not present, Kernig's sign is negative, Brudzinski's sign is negative. 09:30 Respiratory: mild respiratory distress is noted, Respirations: normal, no acute changes, labored breathing, is not present, Breath sounds: bronchial sounds, that are mild, are scattered, decreased breath sounds, that are mild, are scattered, rhonchi, that are mild, are scattered, stridor, is not appreciated, + upper airway congestion. wheezing: expiratory Respiratory rate: 16 09:30 Musculoskeletal/extremity: DVT Exam: No signs of deep vein thrombosis. no pain, no swelling, no tenderness, negative Homans' sign noted on exam, no appreciated bluish discoloration, no erythema, no increased warmth. Vital Signs: 08:47 BP 112 / 73; Pulse 61; Resp 16 S; Temp 98.4(O); Pulse Ox 97% on R/A; Weight 53.52 kg aa5 (R); Height 5 ft. 2 in. (157.48 cm) (R); 09:42 BP 111 / 75; Pulse 65; Pulse Ox 98% on R/A; ap3 08:47 Body Mass Index 21.58 (53.52 kg, 157.48 cm) aa5 MDM: 08:45 Patient medically screened. alphonse 09:32 Differential diagnosis: Anemia Anxiety Reaction asthma, Bronchitis CHF exacerbation, alphonse pneumonia, Pneumothorax pulmonary edema, reactive airway disease. Antibiotic administration: The patient is discharged and will get outpatient antibiotics, Zithromax. Differential Diagnosis: Obstructed Airway Bronchitis Influenza Upper Respiratory Infection Sinusitis Pharyngitis Asthma Exacerbation Pneumonia. Immunization status:. Data reviewed: vital signs, nurses notes, lab test result(s), radiologic studies. Consideration of Admission/Observation Escalation of care including admission/observation considered. Independent interpretation of the following test(s) in the Emergency Department X-Ray: My interpretation is chest xray. Test considered but Not performed: Labs: no cbc, comp met. Care significantly affected by the following chronic conditions: asthma, fibromyalgia. 05/11 08:57 Order name: COVID-19/FLU A+B alphonse 05/11 09:54 Order name: COVID-19/FLU A+B; Complete Time: 10:07 EDMS 02/21 08:57 Order name: Chest Pa And Lat (2 Views) XRAY alphonse Administered Medications: 09:13 Drug: predniSONE 60 mg Route: PO; ap3 09:41 Follow up: Response: No adverse reaction ap3 09:13 Drug: Albuterol - atroVENT (ipratropium) (3:1) (2.5 mg - 0.5 mg) 3 ml Route: Nebulizer; ap3 09:41 Follow up: Response: No adverse reaction ap3 09:13 Drug: Zithromax (azithromycin) 500 mg Route: PO; ap3 09:40 Follow up: Response: No adverse reaction ap3 Disposition Summary: 05/11/22 10:08 Discharge Ordered Location: Home [facility] Problem: new [facility] Symptoms: have improved alphonse Condition: Stable alphonse Diagnosis - Mild persistent asthma alphonse - Acute upper respiratory infection, unspecified alphonse - Tobacco abuse counseling alphonse - Tobacco use alphonse Followup: alphonse - With: Private Physician - When: 2 - 3 days - Reason: Recheck today's complaints, Continuance of care, Re-evaluation by your physician Followup: alphonse - With: - When: 2 - 3 days - Reason: Recheck today's complaints, Re-evaluation by your physician Discharge Instructions: - Discharge Summary Sheet alphonse - Asthma, Adult alphonse - Steps to Quit Smoking alphonse - Upper Respiratory Infection, Adult alphonse - Cool Mist Vaporizer alphonse - Upper Respiratory Infection, Adult, [id number] alphonse - Asthma, Adult, [id number] alphonse - Steps to Quit Smoking, [id number] alphonse - Cough, Adult [facility] Forms: - Medication Reconciliation Form [facility] - Thank You Letter [facility] - Antibiotic Education [facility] - Prescription Opioid Use [facility] - Work release form ap3 Prescriptions: - Albuterol Sulfate 2.5 mg /3 mL (0.083 %) Inhalation Solution for Nebulization - inhale 1 unit by NEBULIZATION route every 8 hours As needed; 1 box; Refills: 0, alphonse Product Selection Permitted - Zithromax Z-Kieran 250 mg Oral Tablet - take 1 tablet by ORAL route as directed for 5 days Day 1 - take two (2) tablets alphonse one time. Day 2, 3, 4 , 5 take one (1) tablet once daily.; 6 tablet; Refills: 0, Product Selection Permitted - Prednisone 20 mg Oral Tablet - take 2 tablets by ORAL route once daily for 5 days; 10 tablet; Refills: 0, alphonse Product Selection Permitted - albuterol sulfate 90 mcg/actuation Inhalation HFA aerosol inhaler - inhale 2 puff by INHALATION route every 4-6 hours; 1 Pump; Refills: 0, Product alphonse Selection Permitted Signatures: Dispatcher [employer] Tim Izquierdo MD MD cha Calderon, Audri, RN RN aa5 Nancy Mondragon RN RN ap3
--- NOTE | 2022-05-11 10:53 | RAD REPORT ---
EXAM DESCRIPTION: RAD - Chest Pa And Lat (2 Views) - 05/11/2022 10:10 am CLINICAL HISTORY: Congestion Chest pain. COMPARISON: No comparisons FINDINGS: The lungs are clear. The heart is normal in size. No displaced fractures. IMPRESSION: No acute or concerning finding suspected.
[2022-05-11 10:57] VITALS: TEMP 98.4
[2022-05-11 10:58] VITALS: BP 111/75; O2SAT 98
== END 2022-05-11 10:25 | disposition home or self-care (01) ==
LOC: ER 08:40
DX: J06.9 Acute upper respiratory infection, unspecified (principal); J45.30 Mild persistent asthma, uncomplicated; Z72.0 Tobacco use; Z71.6 Tobacco abuse counseling; Z20.822 Contact with and (suspected) exposure to COVID-19
CPT/HCPCS: 0240U; 71046; J7512; J7613; J7644

== ENCOUNTER 2022-12-29 14:44 | Emergency (ER) | payer SELFPAY ==
--- OUTSIDE RECORDS SUMMARY | 2022-12-29 14:48 | XMS REPORT | Continuity of Care Document ---
:1985 Author Organization [facility] t Address [address] [place] [address] Care Team Providers Name Role Phone Gia Coulter MD Attending Clinician Problems Condition Condition Condition Status Onset Resolution Last Treating Co mments Source Name Details Category Date Date Treatment Clinician Date Normal Normal Disease Active Univers delivery delivery 811 ity of 00:00: [place] 00 Medical Branch Disease Active Overview : Univers anemia anemia 10-29 ICD10 ity of 00:00: Diagnosis [place] 00 Term Medical Director Property Branch Utility Bipolar Bipolar Disease Active Univers disorder disorder 11 ity of 00:00: [place] 00 Medical Branch Disruption Disruption Disease Active U nivers of of 8-11 ity of perineal perineal 00:00: [place] wound, wound, 00 Medical with with Branch delivery, delivery, with with mention of mention of complicati complicati on on Allergies, Adverse Reactions, Alerts This patient has no known allergies or adverse reactions. Social History Social Habit Start Date Stop Date Quantity Comments Source Sex Assigned At Uni versity [facility] Smoking Status Start Date Stop Date Source Unknown if ever smoked Universit y of [facility] Medications Ordered Filled Start Stop Current Ordering Indication Dosage Frequency Signature Comments Components Source Medication Medication Date Date Medication? Clinician (SIG) Name Name NaCl 0.9% 2018- 2019- No 500mL at 999 Univ ers (NS) bolus 10-31 08-13 mL/hr, 500 it y of infusion 06:15: 05:47 mL, IV [place] 500 mL 00 :00 Infusion, Medical ONCE, 1 Branch dose, 10/31/18 at 0115, STAT #2 Yes 1 po daily Univers ORAL 8-12 ity of 14:15: [place] 41 Medical Branch DOCUSATE Yes [facility] CALCIUM 240 8-12 capsule by it y of MG ORAL CAP 00:00: mouth [place] 00 daily as Medical needed for Branch constipati on FERROUS Yes 1 Tab Oral Univ ers SULFATE 325 8-12 TID MEALS ity of MG (65 MG 00:00: [place] IRON) ORAL 00 Medical TAB Branch Vital Signs Vital Name Observation Time Observation Value Comments Source Systolic blood 2018-10-31 07:00:00 85 mm[Hg] Univer sity of pressure [facility] Diastolic blood 2018-10-31 07:00:00 58 mm[Hg] [facility] Heart rate 2018-10-31 07:00:00 78 /min [facility] Respiratory rate 2018-10-31 07:00:00 27 /min [facility] Oxygen saturation in 2018-10-31 07:00:00 99 /min [facility] blood by [facility] Pulse oximetry Branch Body temperature 2018-10-31 04:39:[address] [facility] Body weight 2018-10-31 04:39:00 29.484 kg [facility] Procedures Procedure Date / Time Performing Clinician Source Performed LIPASE 2018-10-31 05:21:00 Gia Coulter [facility] MAGNESIUM 2018-10-31 05:21:00 Gia Coulter [facility] COMP. METABOLIC PANEL 2018-10-31 05:21:00 Gia Coulter [facility] ([id number]) [facility] CBC WITH DIFFERENTIAL 2018-10-31 05:21:00 Gia Coulter [facility] URINALYSIS 2018-10-31 05:21:00 Gia Coulter [facility] EBV-MONONUCLEOSIS 2018-10-31 05:21:00 Gia Coulter [facility] SCREEN [facility] RAPID STREP SCREEN FOR 2018-10-31 05:21:00 Gia Coulter [facility] GROUP A Medical Branch NOTICE OF PRIVACY 2018-10-31 04:36:32 Doctor Unassigned, No [facility] PRACTICES Name Medical Branch CONSENT/REFUSAL FOR 2018-10-31 04:35:02 Doctor Unassigned, No Un [facility] DIAGNOSIS AND TREATMENT Name Medical Branch Encounters Start End Encounter Admission Attending Care Care Encounter Source Date/Time Date/Time Type Type Clinicians Facility Department ID 2022-11-08 2022-11-08 Outpatient [facility] [id number] [place] 14:05:15 14:05:15 0821 [facility] 2022-07-02 2022-07-02 Outpatient [facility] [id number] Leo 16:54:17 16:54:17 [id number] [facility] 2022-06-28 2022-06-28 Outpatient [facility] [id number] Leo 17:16:24 17:16:24 0410 [facility] 2022-06-21 2022-06-21 Outpatient [facility] [id number] Leo 08:13:34 08:13:34 [id number] [facility] 2018-10-30 2018-10-31 Emergency [facility] [id number] [facility] 23:45:12 02:17:00 [id number] [facility] [id number] [facility] [id number] [address] Results Test Description Test Time Test Comments Results Result Comments Source EBV-MONONUCLEOSIS SCREEN 2018-10-31 05:51:00 Test Item Value Reference Range Interpretation Comme nts EBV Mononucleosis Screen (test code = 0463343288) Negative Nega tive Lab Interpretation (test code = 20473-4) [facility] 05:48:00 Test Item Value Reference Range Interpretation Comments APPEARANCE (test code Slightly Cloudy Clear A = 5902987920) COLOR (test code = Yellow Yellow 4380428880) PH (test code = 4.8-8.0 6084203207) SP GRAVITY (test code 1.003-1.030 = 4140946582) GLU U QUAL (test code Negative Negative = 6812728454) BLOOD (test code = Negative Negative 9267602419) KETONES (test code = Trace Negative A 2438831094) PROTEIN (test code = Trace Negative A 2887-8) UROBILIN (test code = 1.0 mg/dL See_Comment [Auto mated 0143274819) message] The system which generated this result transmit rocio reference range : 0-1.0 mg/dL. Th e reference range was not used to interpret this result as normal/abnormal . BILIRUBIN (test code Small Negative A = 6214429249) NITRITE (test code = Negative Negative 5793982701) LEUK NAYELI (test code Negative Negative = 2668465103) RBC/HPF (test code = See_Comment [Autom ated 3951584921) message] The system which generated this result transmit rocio reference range : 0 - 3 HPF. The reference range was not used to interpret this result as normal/abnormal . WBC/HPF (test code = See_Comment [Autom ated 3894897122) message] The system which generated this result transmit rocio reference range : 0 - 5 HPF. The reference range was not used to interpret this result as normal/abnormal . BACTERIA (test code = Few Negative A 8316613021) MUCOUS (test code = Moderate Negative LPF A 0818070881) SQ EPITH (test code = HPF 7213095231) Lab Interpretation Abnormal (test code = 73025-8) [facility]. METABOLIC PANEL (61044)2018-10-31 05:46:00 Test Item Value Reference Range Interpretation Comments NA (test code = 144 mmol/L 135-145 7324747802) K (test code = 3.6 mmol/L 3.5-5 6604951904) CL (test code = 105 mmol/L 98-108 6685037693) CO2 TOTAL (test code = 29 mmol/L 23-31 2913175996) AGAP (test code = 2-16 7556452606) BUN (test code = 21 mg/dL 7-23 5903087266) GLUCOSE (test code = 76 mg/dL 70-110 0595534384) CREATININE (test code = 0.48 mg/dL 0.5-1.04 L 8240920987) TOTAL BILI (test code = 0.9 mg/dL 0.1-1.6 5976366008) CALCIUM (test code = 9.2 mg/dL 8.6-10.6 5779590138) T PROTEIN (test code = 7.4 g/dL 6.3-8.2 7547790701) ALBUMIN (test code = 4.4 g/dL 3.5-5 8804427398) ALK PHOS (test code = 58 U/L 34-122 3037996353) ALT(SGPT) (test code = 31 U/L 9-51 0061677853) AST(SGOT) (test code = 30 U/L 13-40 3556266851) eGFR Calculation mL/min/1.73m2 (Non-) (test code = 9085161498) eGFR Calculation mL/min/1.73m2 () (test code = 7674741701) SHAN (test code = SHAN) Association of Glomerular Filtration Rate (GFR) and Staging of Kidney Disease*+ + + +| GFR (mL/min/1.73 m2)?| With Kidney Damage?|?Without Kidney Damage+ --------+ --------+ +|?>90?|?S tage one?|? Normal?+ ---------+ ---------+ +|?60-89? ?|?Stage two?|? Decreased GFR? + --+ --+ ------+|?30-59?|?Stage three?|? Stage three? + --+ --+ ------+|?15-29?|?Stage four? |? Stage four?+ -------+ -------+ +|?<15 (or dialysis)?|?Stage five? |? Stage five?+ -------+ -------+ +*Each stage assumes the associated GFR level has been in effect for at least three months.?Stages 1 to 5, with or without kidney disease, indicate chronic kidney disease.Notes: Determination of stages one and two (with eGFR >59mL/min/1.73 m2) requires estimation of kidney damage for at least three months as defined by structural or functional abnormalities of the kidney, manifested by either:Pathological abnormalities or Markers of kidney damage (including abnormalities in the composition of the blood or urine or abnormalities in imaging tests). Lab Interpretation Abnormal (test code = 85474-7) [facility] 05:46[facility]00 Test Item Value Reference Range Interpretation Comments LIPASE (test code = 9264145684) 72 U/L 0-220 Lab Interpretation (test code = Normal 28703-5) [facility] 05:46:00 Test Item Value Reference Range Interpretation Comments MAGNESIUM (test code = 1859548264) 2.1 mg/dL 1.7-2.4 Lab Interpretation (test code = Normal 84459-0) [facility] FOR GROUP [id number] 05:44:00 Test Item Value Reference Range Interpretation Comments Streptococcus pyogenes (group A) Negative Negative antigen (test code = 98969-5) Lab Interpretation (test code = Normal 05672-4) [facility] WITH [id number] 05:30:00 Test Item Value Reference Range Interpretation Comments WBC (test code = See_Comment [Automated 8490-2) message] The sy stem which generated this result transmitted reference range : 4.30 - 11.10 10*3/?L. The reference range was not used to interpret this result as normal/abnormal . RBC (test code = See_Comment [Automated 789-8) message] The sy stem which generated this result transmitted reference range : 3.93 - 5.25 10*6/?L. The reference range was not used to interpret this result as normal/abnormal . HGB (test code = 13.1 g/dL 11.6-15 718-7) HCT (test code = 39.8 % 35.7-45.2 4544-3) MCV (test code = 93.9 fL 80.6-95.5 787-2) MCH (test code = 30.9 pg 25.9-32.8 785-6) MCHC (test code = 32.9 g/dL 31.6-35.1 786-4) RDW-SD (test code = 43.9 fL 39-49.9 43725-2) RDW-CV (test code = 12.7 % 12-15.5 788-0) PLT (test code = See_Comment [Automated 777-3) message] The sy stem which generated this result transmitted reference range : 166 - 358 10*3/ ?L. The reference r annika was not used to interpret this result as normal/abnormal . MPV (test code = 8.7 fL 9.5-12.9 L 72817-0) NRBC/100 WBC (test See_Comment [Automat ed code = 7506572281) message] The system which generated this result transmitted reference range : 0.0 - 10.0 /100 WBCs. The refer ence range was not u sed to interpret th is result as normal/abnormal . NRBC x10^3 (test code <0.01 See_Comment [Auto mated = 0552226394) message] The s ystem which generated this result transmitted reference range : 10*3/?L. The reference range was not used to interpret this result as normal/abnormal . GRAN MAT (NEUT) % 73.1 % (test code = 770-8) IMM GRAN % (test code 0.30 % = 1959616472) LYMPH % (test code = 11.0 % 736-9) MONO % (test code = 13.5 % 5905-5) EOS % (test code = 1.7 % 713-8) BASO % (test code = 0.4 % 706-2) GRAN MAT x10^3(ANC) 6.86 10*3/uL 1.88-7.09 (test code = 5699533049) IMM GRAN x10^3 (test 0.03 10*3/uL 0-0.06 code = 4600048108) LYMPH x10^3 (test code 1.03 10*3/uL 1.32-3.29 L = 731-0) MONO x10^3 (test code 1.27 10*3/uL 0.33-0.92 H = 742-7) EOS x10^3 (test code = 0.16 10*3/uL 0.03-0.39 711-2) BASO x10^3 (test code 0.04 10*3/uL 0.01-0.07 = 704-7) Lab Interpretation Abnormal (test code = 91803-3) [facility]"
[2022-12-29] MEDS ORDERED: KETOROLAC 30 MG/ML INJ ONE (15:32)
[2022-12-29] MEDS ORDERED: NA CHLORIDE 0.9% 1,000 ML ONE (15:32)
[2022-12-29] MEDS ORDERED: METOCLOPRAMIDE 10 MG/2mL INJ ONE (15:32)
[2022-12-29] MEDS ORDERED: DIPHENHYDRAMINE 50 MG/ML VIAL ONE (15:32)
[2022-12-29] MEDS ORDERED: HYDROCODONE/APAP 5/325 MG TAB ONE (17:05)
--- NOTE | 2022-12-29 17:31 | ER ---
Nurse's Notes [facility] Name: Lesli Skelton Age: 37 yrs Sex: Female : 1985 Arrival Date: 12/29/2022 Time: 14:44 Bed 20 Private MD: Diagnosis: Headache Presentation: 12/29 14:59 Chief complaint: Patient states: she has been having a headache that is not alleviated ap3 with OTC medications. Patient reports the headache started this morning when she woke up, and rates the pain an 8/10. Patient reports that she has a history of migraines, and has headaches like these before. Coronavirus screen: At this time, the client does not indicate any symptoms associated with coronavirus-19. Ebola Screen: No symptoms or risks identified at this time. Initial Sepsis Screen: Does the patient meet any 2 criteria? No. Patient's initial sepsis screen is negative. Does the patient have a suspected source of infection? No. Patient's initial sepsis screen is negative. Risk Assessment: Do you want to hurt yourself or someone else? Patient reports no desire to harm self or others. Onset of symptoms was December 29, 2022. 14:59 Method Of Arrival: Ambulatory ap3 14:59 Acuity: TAZ 3 ap3 Triage Assessment: 15:02 General: Appears uncomfortable, Behavior is calm, cooperative, appropriate for age. ap3 Pain: Complains of pain in head Pain currently is 8 out of 10 on a pain scale. Pain began this morning. Neuro: Level of Consciousness is awake, alert, obeys commands, Oriented to person, place, time, situation, Appropriate for age Reports headache in entire since this morning. Cardiovascular: Patient's skin is warm and dry. Respiratory: Airway is patent Respiratory effort is even, unlabored, Respiratory pattern is regular, symmetrical. 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 - Social history:: Smoking status: Patient reports the use of cigarette tobacco products, denies chronic smoking, but will smoke occasionally. Screenin:03 [facility] ED Fall Risk Assessment (Adult) History of falling in the last 3 months, ap3 including since admission No falls in past 3 months (0 pts). Abuse screen: Denies threats or abuse. Nutritional screening: No deficits noted. Tuberculosis screening: No symptoms or risk factors identified. Assessment: 15:55 Reassessment: See triage assessment. nj1 16:25 Reassessment: pt states her headache has improved but not completely resolved, now a iw 6/10. 17:00 Reassessment: Patient appears in no apparent distress at this time. Patient and/or nj1 family updated on plan of care and expected duration. Pain level reassessed. Patient is alert, oriented x 3, equal unlabored respirations, skin warm/dry/pink. 17:40 Reassessment: Patient appears in no apparent distress at this time. Patient and/or nj1 family updated on plan of care and expected duration. Pain level reassessed. Patient is alert, oriented x 3, equal unlabored respirations, skin warm/dry/pink. Patient states feeling better. Patient states symptoms have improved. Vital Signs: 14:59 BP 106 / 72; Pulse 81; Resp 18; Temp 97.8; Pulse Ox 99% ; Weight 56.7 kg; Pain 8/10; ap3 16:59 BP 105 / 67; Pulse 63; Resp 16; Pulse Ox 100% ; Pain 6/10; nj1 17:40 Pain 4/10; nj1 14:59 Pain Scale: Adult ap3 16:59 Pain Scale: Adult nj1 17:40 Pain Scale: Adult nj1 Gabriela Coma Score: 16:50 Eye Response: spontaneous(4). Motor Response: obeys commands(6). Verbal Response: sb4 oriented(5). Total: 15. ED Course: 14:46 Patient arrived in ED. rg4 14:48 Sandi Bae PA-C is PHCP. sb4 14:48 Braden De Anda DO is Attending Physician. sb4 15:00 Triage completed. ap3 15:03 Arm band placed on right wrist. ap3 15:50 Patient has correct armband on for positive identification. Bed in low position. Call nj1 light in reach. Provided Education on: call light, fall precautions. 15:59 Elvia Camarena, RN is Primary Nurse. nj1 16:03 No provider procedures requiring assistance completed. nj1 16:30 IV discontinued, Infiltrated, warm compressed applied, ED provider notified Alexsander Bae IRRIGATION TEACHER.nj1 Administered Medications: 16:46 Discontinued: ns 0.9% 1000 ml IV at 1 bolus Per protocol; 1000 mL bolus nj1 15:40 Drug: Ketorolac IVP 15 mg IVP once Route: IVP; Site: right antecubital; ap3 16:47 Follow up: Response: No adverse reaction nj1 15:42 Drug: metoCLOPramide IVP 10 mg IVP once; over 1 to 2 minutes Route: IVP; Site: right ap3 antecubital; 16:46 Follow up: Response: No adverse reaction nj1 15:50 Drug: diphenhydrAMINE IVP 25 mg IVP once Route: IVP; Site: right antecubital; ap3 16:46 Follow up: Response: No adverse reaction nj1 15:53 Drug: NS 0.9% IV 1000 ml IV at 1 bolus Per protocol; 1000 mL bolus Route: IV; Rate: 1 ap3 bolus; Site: right antecubital; 16:30 Follow up: IV Status: IV infiltrated; IV Intake: 100ml nj1 16:58 Drug: HYDROcodone-acetaminophen PO 5 mg-325 mg 2 tabs PO once Route: PO; nj1 17:40 Follow up: Pain 4/10 Adult; Response: No adverse reaction; Pain is decreased nj1 Medication: 16:03 VIS not applicable for this client. nj1 Intake: 16:30 IV: 100ml; Total: 100ml. nj1 Outcome: 17:31 Discharge ordered by . sb4 17:40 Discharged to home ambulatory, nj1 17:40 Condition: stable 17:40 Discharge instructions given to patient, Instructed on discharge instructions, follow up and referral plans. Demonstrated understanding of instructions, follow-up care, 17:45 Patient left the ED. nj1 Signatures: Carissa Tillman RN Kesha Parra rg4 Nancy Mondragon RN RN ap3 Sandi Bae, PA-C PA-C [email or web address] Migue, Elvia, RN RN nj1
--- NOTE | 2022-12-29 17:31 | EDPHYS ---
Physician Documentation [facility] Name: Lesli Skelton Age: 37 yrs Sex: Female : 1985 Arrival Date: 12/29/2022 Time: 14:44 Bed 20 Private MD: ED Physician Braden De Anda HPI: 12/29 16:45 This 37 yrs old Female presents to ER via Ambulatory with complaints of Migraine. sb4 16:46 The patient complains of pain to the top of head and left eye. The patient describes sb4 the headache as constant. Onset: The symptoms/episode began/occurred this morning. Associated signs and symptoms: Pertinent positives: nausea, Photophobia. Severity of symptoms: At its worst the pain was moderate. Headache History: The patient has had previous headaches and this one is similar to previous episodes. The symptoms are alleviated by nothing. the symptoms are aggravated by lights, noise. The patient has experienced similar episodes in the past, several times, but today's symptoms are worse. The patient has not recently seen a physician. 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 - Social history:: Smoking status: Patient reports the use of cigarette tobacco products, denies chronic smoking, but will smoke occasionally. ROS: 16:46 Constitutional: Negative for fever, chills, and weight loss, sb4 16:46 Neuro: Positive for headache, 16:46 All other systems are negative, Exam: 16:46 Constitutional: This is a well developed, well nourished patient who is awake, alert, sb4 and in no acute distress. Head/Face: Normocephalic, atraumatic. Eyes: Extra-ocular motions intact. Periorbital areas with no swelling, redness, or edema. ENT: Mucous membranes moist. Skin: Warm, dry with normal turgor. Normal color with no rashes, no lesions, and no evidence of cellulitis. MS/ Extremity: Pulses equal, no cyanosis. Neurovascular intact. Full, normal range of motion. Neuro: Awake and alert, GCS 15, oriented to person, place, time, and situation. Motor strength 5/5 in all extremities. Sensory grossly intact. Vital Signs: 14:59 BP 106 / 72; Pulse 81; Resp 18; Temp 97.8; Pulse Ox 99% ; Weight 56.7 kg; Pain 8/10; ap3 16:59 BP 105 / 67; Pulse 63; Resp 16; Pulse Ox 100% ; Pain 6/10; nj1 17:40 Pain 4/10; nj1 14:59 Pain Scale: Adult ap3 16:59 Pain Scale: Adult nj1 17:40 Pain Scale: Adult nj1 Gabriela Coma Score: 16:50 Eye Response: spontaneous(4). Motor Response: obeys commands(6). Verbal Response: sb4 oriented(5). Total: 15. MDM: 15:08 Patient medically screened. sb4 16:50 Differential diagnosis: cluster headache, migraine, tension headache. Data reviewed: sb4 vital signs, nurses notes, and as a result, I will discharge patient. 17:30 Counseling: I had a detailed discussion with the patient and/or guardian regarding the sb4 historical points, exam findings, and any diagnostic results supporting the discharge/admit diagnosis, the need for outpatient follow up, a neurologist, to return to the emergency department if symptoms worsen or persist or if there are any questions or concerns that arise at home. 12/29 15:02 Order name: IV Start; Complete Time: 15:53 sb4 Administered Medications: 16:46 Discontinued: ns 0.9% 1000 ml IV at 1 bolus Per protocol; 1000 mL bolus nj1 15:40 Drug: Ketorolac IVP 15 mg IVP once Route: IVP; Site: right antecubital; ap3 16:47 Follow up: Response: No adverse reaction nj1 15:42 Drug: metoCLOPramide IVP 10 mg IVP once; over 1 to 2 minutes Route: IVP; Site: right ap3 antecubital; 16:46 Follow up: Response: No adverse reaction nj1 15:50 Drug: diphenhydrAMINE IVP 25 mg IVP once Route: IVP; Site: right antecubital; ap3 16:46 Follow up: Response: No adverse reaction nj1 15:53 Drug: NS 0.9% IV 1000 ml IV at 1 bolus Per protocol; 1000 mL bolus Route: IV; Rate: 1 ap3 bolus; Site: right antecubital; 16:30 Follow up: IV Status: IV infiltrated; IV Intake: 100ml nj1 16:58 Drug: HYDROcodone-acetaminophen PO 5 mg-325 mg 2 tabs PO once Route: PO; nj1 17:40 Follow up: Pain 10 Adult; Response: No adverse reaction; Pain is decreased nj1 Disposition: 16:55 I was immediately available on-site in the Emergency Department for consultation in the nc3 care of the patient. Disposition Summary: 12/29/22 17:31 Discharge Ordered Notes: Location: Home sb4 Problem: an acute exacerbation sb4 Symptoms: have improved sb4 Condition: Stable sb4 Diagnosis - Headache sb4 Followup: sb4 - With: Emergency Department - When: As needed - Reason: Trouble breathing, Worsening of condition Discharge Instructions: - Discharge Summary Sheet sb4 - Migraine Headache sb4 Forms: - Medication Reconciliation Form sb4 - Thank You Letter sb4 - Antibiotic Education sb4 - Prescription Opioid Use sb4 - Patient Portal Instructions sb4 - Leadership Thank You Letter sb4 Signatures: Nancy Mondragon, RN RN ap3 Braden De Anda DO DO ms3 Sandi Bae PA-C PA-C sb4 Elvia Camarena RN RN nj1
[2022-12-29 18:28] VITALS: BP 106/72; TEMP 97.8; O2SAT 99
== END 2022-12-29 17:45 | disposition home or self-care (01) ==
LOC: ER 14:44
DX: R51.9 Headache, unspecified (principal)
CPT/HCPCS: J1200; J2765; J7030